=== PATIENT | male | born 1995 | race Caucasian/White ===

== ENCOUNTER 2024-11-03 08:12 | Emergency (ER) | payer OTHER, SELFPAY ==
--- NOTE | 2024-11-03 08:32 | ER ---
Nurse's Notes [facility] Name: Demario Liu Jr Age: 29 yrs Sex: Male : 1995 Arrival Date: 11/03/2024 Time: 08:12 Bed 19 Private MD: Diagnosis: Dental pain, dental infection Presentation: 11/03 08:22 Chief complaint: Patient states: woke up yesterday and my mouth was swollen and this iw morning I have a lot of pain behind my tooth on right lower jaw. Coronavirus screen: At this time, the client does not indicate any symptoms associated with coronavirus-19. Ebola Screen: No symptoms or risks identified at this time. Initial Sepsis Screen: Does the patient meet any 2 criteria? No. Patient's initial sepsis screen is negative. Does the patient have a suspected source of infection? No. Patient's initial sepsis screen is negative. Risk Assessment: Do you want to hurt yourself or someone else? Patient reports no desire to harm self or others. Onset of symptoms was November 02, 2024. 08:22 Method Of Arrival: Ambulatory iw 08:22 Acuity: SUELLEN 4 iw Historical: - Allergies: 08:23 Demerol; iw 08:23 Phenergan; iw - Home Meds: 08:23 None [Active]; iw - PMHx: 08:23 None; iw - PSHx: 08:23 ankle; iw - Immunization history:: Adult Immunizations not up to date. - Infectious Disease History:: Denies. - Social history:: Smoking status: Reported history of juuling and/or vaping. Screenin:[address] [facility] ED Fall Risk Assessment (Adult) History of falling in the last 3 months, kc6 including since admission No falls in past 3 months (0 pts) Confusion or Disorientation No (0 pts) Intoxicated or Sedated No (0 pts) Impaired Gait No (0 pts) Mobility Assist Device Used No (0 pt) Altered Elimination No (0 pt) Score/Fall Risk Level 0 - 2 = Low Risk Oriented to surroundings, Maintained a safe environment, Educated pt \T\ family on fall prevention, incl call for assistance when getting out of bed. Abuse screen: Denies threats or abuse. Denies injuries from another. Nutritional screening: No deficits noted. Tuberculosis screening: No symptoms or risk factors identified. Assessment: 08:50 General: Appears in no apparent distress. uncomfortable, well groomed, well developed, kc6 Behavior is calm, cooperative, appropriate for age. Pain: Complains of pain in mouth and right submandibular area. Neuro: Level of Consciousness is awake, alert, obeys commands, Oriented to person, place, time, situation, Appropriate for age. Respiratory: Airway is patent Trachea midline Respiratory effort is even, unlabored, Respiratory pattern is regular, symmetrical. EENT: Oral mucosa is moist. Poor dentition noted. Derm: No signs and/or symptoms reported regarding the dermatologic system. Skin is intact, is healthy with good turgor, Skin is pink, warm \T\ dry. Musculoskeletal: Swelling present in mouth. Vital Signs: 08:22 BP 130 / 83; Pulse 70; Resp 16; Temp 97.7; Pulse Ox 100% on R/A; Weight 90.72 kg; iw Height 6 ft. 4 in. ; Pain 9/10; 08:22 Body Mass Index 24.34 (90.72 kg, 193.04 cm) iw 08:22 Pain Scale: Adult iw ED Course: 08:16 Patient arrived in ED. al6 08:23 Triage completed. iw 08:24 Arm band placed on. iw 08:26 Merrill Arauz MD is Attending Physician. sp3 08:29 Sindy Cast, NEIL is Primary Nurse. kc6 08:38 Patient has correct armband on for positive identification. Bed in low position. Call kc6 light in reach. Side rails up X 1. Pulse ox on. NIBP on. Door closed. Noise minimized. Lights dimmed. Pillow given. Verbal reassurance given. 08:38 No provider procedures requiring assistance completed. Patient did not have IV access kc6 during this emergency room visit. Patient maintains SpO2 saturation greater than 95% on room air. Administered Medications: No medications were administered Medication: 08:39 VIS not applicable for this client. kc6 Outcome: 08:31 Discharge ordered by . sp3 08:50 Discharged to home ambulatory, kc6 08:50 Condition: good 08:50 Discharge instructions given to patient, Instructed on discharge instructions, follow up and referral plans. medication usage, Demonstrated understanding of instructions, follow-up care, medications, Prescriptions given X 2, 08:51 Patient left the ED. kc6 Signatures: Rafaela Riggins, RN RN iw Merrill Arauz MD MD sp3 Sindy Cast RN RN kc6 Ashley [id number]
--- NOTE | 2024-11-03 08:32 | EDPHYS ---
Physician Documentation [facility] Name: Demario Liu Jr Age: 29 yrs Sex: Male : 1995 Arrival Date: 11/03/2024 Time: 08:12 Bed 19 Private MD: ED Physician Merrill Arauz HPI: 11/03 08:30 This 29 yrs old Male presents to ER via Ambulatory with complaints of Jaw Pain. sp3 08:30 29-year-old male with no past medical history presents with right mandibular tooth pain sp3 for the last 48 hours progressively getting worse. Denies any fever, headache, maxillary pain, neck pain, neck stiffness, chest pain, shortness of breath, sore throat, cough, congestion or any other signs or symptoms on ROS at this time including ear pain.. Historical: - Allergies: 08:23 Demerol; iw 08:23 Phenergan; iw - Home Meds: 08:23 None [Active]; iw - PMHx: 08:23 None; iw - PSHx: 08:23 ankle; iw - Immunization history:: Adult Immunizations not up to date. - Infectious Disease History:: Denies. - Social history:: Smoking status: Reported history of juuling and/or vaping. ROS: 08:30 Constitutional: Negative for fever, chills, and weight loss, Eyes: Negative for injury, sp3 pain, redness, and discharge, Neck: Negative for injury, pain, and swelling, Cardiovascular: Negative for chest pain, palpitations, and edema, Respiratory: Negative for shortness of breath, cough, wheezing, and pleuritic chest pain, Abdomen/GI: Negative for abdominal pain, nausea, vomiting, diarrhea, and constipation, Back: Negative for injury and pain, MS/Extremity: Negative for injury and deformity, Skin: Negative for injury, rash, and discoloration, Neuro: Negative for headache, weakness, numbness, tingling, and seizure, Psych: Negative for depression, anxiety, suicide ideation, homicidal ideation, and hallucinations, Allergy/Immunology: Negative for hives, rash, and allergies, Endocrine: Negative for neck swelling, polydipsia, polyuria, polyphagia, and marked weight changes, 08:30 All other systems are negative, Exam: 08:30 Constitutional: This is a well developed, well nourished patient who is awake, alert, sp3 and in no acute distress. Head/Face: Normocephalic, atraumatic. Eyes: Pupils equal round and reactive to light, extra-ocular motions intact. Lids and lashes normal. Conjunctiva and sclera are non-icteric and not injected. Cornea within normal limits. Periorbital areas with no swelling, redness, or edema. Neck: Trachea midline, no thyromegaly or masses palpated, and no cervical lymphadenopathy. Supple, full range of motion without nuchal rigidity, or vertebral point tenderness. No Meningismus. Chest/axilla: Normal chest wall appearance and motion. Nontender with no deformity. No lesions are appreciated. Cardiovascular: Regular rate and rhythm with a normal S1 and S2. No gallops, murmurs, or rubs. Normal PMI, no JVD. No pulse deficits. Respiratory: Lungs have equal breath sounds bilaterally, clear to auscultation and percussion. No rales, rhonchi or wheezes noted. No increased work of breathing, no retractions or nasal flaring. Abdomen/GI: Soft, non-tender, with normal bowel sounds. No distension or tympany. No guarding or rebound. No evidence of tenderness throughout. Back: No spinal tenderness. No costovertebral tenderness. Full range of motion. 08:30 ENT: Pain to percussion on right maxillary neck to the last molar with surrounding gum erythema.. Vital Signs: 08:22 BP 130 / 83; Pulse 70; Resp 16; Temp 97.7; Pulse Ox 100% on R/A; Weight 90.72 kg; iw Height 6 ft. 4 in. ; Pain 9/10; 08:22 Body Mass Index 24.34 (90.72 kg, 193.04 cm) iw 08:22 Pain Scale: Adult iw MDM: 08:26 Medical Screening Exam initiated sp3 08:31 Data reviewed: vital signs, nurses notes. ED course: 29-year-old male with dental pain sp3 concerning for cavity versus infection. I advised him to seek follow-up with dentistry and we will discharge him with Augmentin and diclofenac for symptomatic control.. Administered Medications: No medications were administered Disposition Summary: 11/03/24 08:31 Discharge Ordered Notes: Location: Home sp3 Condition: Stable sp3 Diagnosis - Dental pain, dental infection sp3 Followup: sp3 - With: Private Physician - When: Upon discharge from the Emergency Department - Reason: Recheck today's complaints, Continuance of care Discharge Instructions: - Discharge Summary Sheet sp3 - Dental Pain sp3 Forms: - Medication Reconciliation Form sp3 - Antibiotic Education sp3 - Prescription Opioid Use sp3 - Patient Portal Instructions sp3 - Leadership Thank You Letter sp3 Prescriptions: - Augmentin 875-125 mg Oral Tablet - take 1 tablet ORAL route every 12 hours for 10 days; 20 tablet; Refills: 0, sp3 Product Selection Permitted - Diclofenac Sodium 75 mg Oral Tablet Sustained Release - take 1 tablet ORAL route 2 times per day; 30 tablet; Refills: 0, Product sp3 Selection Permitted Signatures: Rafaela Riggins RN RN Merrill Bernabe MD MD sp3
[2024-11-03 09:03] VITALS: BP 130/83; TEMP 97.7; O2SAT 100
== END 2024-11-03 08:51 | disposition home or self-care (01) ==
LOC: ER 08:12
DX: K04.7 Periapical abscess without sinus (principal)
CPT/HCPCS: 99283